=== PATIENT | male | born 1990 | race Caucasian/White ===

== ENCOUNTER 2017-11-26 15:48 | Emergency (ER) | payer BC ==
[2017-11-26 16:18] VITALS: BP 124/78
--- NOTE | 2017-11-26 16:35 | UC ---
Throat Pain/Nasal Bo HPI - HPI Summary HPI Summary: 26-year-old male here with a complaint of sinus pressure rhinorrhea cough and not feeling well. Symptoms started about a week ago. The rhinorrhea is green and blood tinged. With his cough he feels he is having a difficult time getting anything up. He does have a sore throat. Denies ear pain. He's been using DayQuil and NyQuil with minimal improvement. No wheezing. - History of Current Complaint Chief Complaint: UCRespiratory Stated Complaint: SORE THROAT/CHILLS/COUGH Time Seen by Provider: 11/26/17 16:22 Pain Intensity: 0 - Allergies/Home Medications Allergies/Adverse Reactions: Allergies Allergy/AdvReac Type Severity Reaction Status Date / Time No Known Allergies Allergy Verified 11/26/17 16:18 Home Medications: Home Medications D-Methorphan/PE/Acetaminophen [Day Time Cold-Flu Liquid] 237 ml PO DAILY [History Confirmed 11/26/17] PMH/Surg Hx/FS Hx/Imm Hx Previously Healthy: Yes - Surgical History Surgical History: None - Family History Known Family History: Negative: Hypertension, Diabetes - Social History Alcohol Use: Rare Substance Use Type: None Smoking Status (MU): Never Smoked Tobacco Review of Systems Constitutional: Negative Skin: Negative Eyes: Negative ENT: Sore Throat, Nasal Discharge, Sinus Congestion, Sinus Pain/Tenderness Respiratory: Cough Cardiovascular: Negative Gastrointestinal: Negative Neurovascular: Negative Musculoskeletal: Negative Neurological: Negative Psychological: Negative Is Patient Immunocompromised?: No All Other Systems Reviewed And Are Negative: Yes Physical Exam Triage Information Reviewed: Yes Appearance: No Pain Distress, Well-Nourished, Ill-Appearing - mild Vital Signs: Initial Vital Signs Temp 98.6 F 11/26/17 16:15 Pulse 66 11/26/17 16:15 Resp 18 11/26/17 16:15 BP 124/78 11/26/17 16:15 Pulse Ox 99 11/26/17 16:15 Vital Signs Reviewed: Yes Eye Exam: Normal Eyes: Positive: Conjunctiva Clear ENT: Positive: Pharyngeal erythema, Nasal congestion, Nasal drainage, TMs normal , Sinus tenderness Neck exam: Normal Neck: Positive: Supple, Nontender, No Lymphadenopathy Respiratory Exam: Normal Respiratory: Positive: Lungs clear, Normal breath sounds, No respiratory distress Cardiovascular: Positive: RRR Musculoskeletal Exam: Normal Musculoskeletal: Positive: Strength Intact Neurological Exam: Normal Neurological: Positive: Alert Psychological Exam: Normal Psychological: Positive: Age Appropriate Behavior Skin Exam: Normal Throat Pain/Nasal Course/Dx - Course Course Of Treatment: DISCUSSED VIRAL VERSES BACTERIAL INFECTION AND THE ROLE OF ANTIBIOTICS. THE PATIENT WISHES TO BE ON ANTIBIOTICS AT THIS TIME. - Differential Dx/Diagnosis Provider Diagnoses: sinusitis Discharge - Sign-Out/Discharge Documenting (check all that apply): Patient Departure All imaging exams completed and their final reports reviewed: No Studies - Discharge Plan Condition: Stable Disposition: HOME Prescriptions: Amoxicillin/Clavulanate TAB* [Augmentin TAB 875*] 875 mg PO BID #20 tab Benzonatate CAP* [Tessalon 100 MG CAP*] 100 mg PO TID PRN #15 cap PRN Reason: Cough Patient Education Materials: Sinusitis (ED) Referrals: [facility] [place] [facility] [Outside] Additional Instructions: FOLLOW UP WITH YOUR DOCTOR. GET RECHECKED FOR ANY WORSENING OF YOUR CONDITION OR QUESTIONS OR CONCERNS. - Billing Disposition and Condition Condition: STABLE Disposition: Home
== END 2017-11-26 16:42 | disposition home or self-care (01) ==
LOC: UCCORT 15:48
DX: J32.9 Chronic sinusitis, unspecified (principal)
CPT/HCPCS: 99212; G0463

== ENCOUNTER 2018-06-17 07:39 | Emergency (ER) | payer BC ==
[2018-06-17 07:57] VITALS: BP 109/76
--- NOTE | 2018-06-17 08:14 | UC ---
UC General HPI - HPI Summary HPI Summary: 27-year-old male comes in with a chief complaint of wanting to be tested for STI 's. Patient is a new partner who just recently had a blister in her genital region. Patient has no history of herpes simplex virus 2. Patient has had some occasional intermittent oral cold sores as long as he can remember. He denies any burning with urination penile discharge genital or oral lesions. No fevers or chills feels well. - History of Current Complaint Chief Complaint: UCSTDScreening Stated Complaint: PERSONAL Time Seen by Provider: 06/17/18 07:54 Pain Intensity: 0 - Allergy/Home Medications Allergies/Adverse Reactions: Allergies Allergy/AdvReac Type Severity Reaction Status Date / Time No Known Allergies Allergy Verified 06/17/18 07:52 Home Medications: Home Medications NK [No Home Medications Reported] 06/17/18 [History Confirmed 06/17/18] PMH/Surg Hx/FS Hx/Imm Hx Previously Healthy: Yes - Surgical History Surgical History: None - Family History Known Family History: Positive: Unknown Negative: Hypertension, Diabetes - Social History Alcohol Use: Rare Substance Use Type: None Smoking Status (MU): Never Smoked Tobacco Review of Systems All Other Systems Reviewed And Are Negative: Yes Constitutional: Positive: Negative Skin: Positive: Negative Eyes: Positive: Negative ENT: Positive: Negative Respiratory: Positive: Negative Cardiovascular: Positive: Negative Gastrointestinal: Positive: Negative Genitourinary: Positive: Negative Motor: Positive: Negative Neurovascular: Positive: Negative Musculoskeletal: Positive: Negative Neurological: Positive: Negative Psychological: Positive: Negative Is Patient Immunocompromised?: No Physical Exam Triage Information Reviewed: Yes Appearance: Well-Appearing, No Pain Distress, Well-Nourished Vital Signs: Initial Vital Signs Temp 98.1 F 06/17/18 07:53 Pulse 80 06/17/18 07:53 Resp 15 06/17/18 07:53 BP 109/76 06/17/18 07:53 Pulse Ox 100 06/17/18 07:53 Vital Signs Reviewed: Yes Eye Exam: Normal Eyes: Positive: Conjunctiva Clear ENT: Positive: Pharynx normal Neck exam: Normal Neck: Positive: Supple Respiratory: Positive: Lungs clear, Normal breath sounds, No respiratory distress Cardiovascular: Positive: RRR Abdomen Description: Positive: Nontender Male Genital Exam: Positive: Other - DECLINED IS ASYMPTOMATIC Musculoskeletal Exam: Normal Musculoskeletal: Positive: Strength Intact, ROM Intact Neurological Exam: Normal Neurological: Positive: Alert, Muscle Tone Normal Psychological Exam: Normal Psychological: Positive: Age Appropriate Behavior Skin Exam: Normal Course/Dx - Course Course Of Treatment: The patient is asymptomatic patient is asymptomatic. Because of the blister on his partner does wish to be checked for herpes simplex virus. I explained to him that the blood work could be positive even though he's never had any genital lesions but he would have no way of knowing when he was infected. Also checking HIV and gonorrhea chlamydia. - Diagnoses Provider Diagnosis: Routine screening for STI (sexually transmitted infection) Discharge - Sign-Out/Discharge Documenting (check all that apply): Patient Departure All imaging exams completed and their final reports reviewed: No Studies - Discharge Plan Condition: Stable Disposition: HOME Patient Education Materials: Sexually Transmitted Diseases (ED) Referrals: [facility] [place] [facility]FERR[facility] [Outside] Additional Instructions: FOLLOW UP WITH YOUR DOCTOR IF NOT COMPLETELY IMPROVED. YOUR LAB RESULTS ARE PENDING. IF ANY OF THEM ARE POSITIVE, WE WILL CALL YOU. IF YOU DO NOT HEAR FROM USE, FEEL FREE TO CALL BACK IN A COUPLE OF DAYS TO CHECK THE FINAL RESULTS. GET REEVALUATED SOONER FOR WORSENING OF YOUR CONDITION OR QUESTIONS OR CONCERNS. - Billing Disposition and Condition Condition: STABLE Disposition: Home
[2018-06-18 13:34] LABS: Neisseria gonorrhoeae (GC) RNA Negative (Negative)
[2018-06-18 14:47] LABS: Herpes Simplex Virus I IgG AB Positive (Negative); Herpes Simplex Virus II IgG AB Positive (Negative)
--- NOTE | 2018-06-19 07:30 | UC ---
- Progress Note Progress Note: RN to call pt. + HSV 1 / 2. Other results thus far available negative. According to notes, no active sores. However, it is very mportant to f/u with pcp re coa / tx plan. If no pcp, then [facility] [place] referral system telephone number to be given. Pt should advise sexual contact(s) of + hsv. Course/Dx - Diagnoses Provider Diagnoses: Routine screening for STI (sexually transmitted infection) Discharge - Sign-Out/Discharge Documenting (check all that apply): Post-Discharge Follow Up All imaging exams completed and their final reports reviewed: No Studies - Discharge Plan Condition: Stable Disposition: HOME Patient Education Materials: Sexually Transmitted Diseases (ED) Referrals: [facility] [place] [facility] REFERRAL [Outside] Additional Instructions: FOLLOW UP WITH YOUR DOCTOR IF NOT COMPLETELY IMPROVED. YOUR LAB RESULTS ARE PENDING. IF ANY OF THEM ARE POSITIVE, WE WILL CALL YOU. IF YOU DO NOT HEAR FROM USE, FEEL FREE TO CALL BACK IN A COUPLE OF DAYS TO CHECK THE FINAL RESULTS. GET REEVALUATED SOONER FOR WORSENING OF YOUR CONDITION OR QUESTIONS OR CONCERNS. - Billing Disposition and Condition Condition: STABLE Disposition: Home
== END 2018-06-17 08:37 | disposition home or self-care (01) ==
LOC: UCCORT 07:39
DX: Z11.3 Encounter for screening for infections with a predominantly sexual mode of transmission (principal); A60.00 Herpesviral infection of urogenital system, unspecified
CPT/HCPCS: 36415; 86694; 86695; 86696; 86703; 87491; 87591; 99211; G0463